=== PATIENT | female | born 1965 | race Caucasian/White ===

== ENCOUNTER 2016-11-03 20:21 | Emergency (ER) | payer MEDICAID ==
[2016-11-03 20:42] VITALS: BP 128/80
--- NOTE | 2016-11-03 20:58 | EDM.PDOC ---
[id number] [id number] KIDNEY INFECTION Time Seen by Provider: 11/03/16 20:45 Source: Reports: Patient History Limitations: Reports: No limitations - History of Present Illness INITIAL COMMENTS - FREE TEXT/NARRATIVE: 51-year-old female who recently had a right ureteral stent placed for recurring nephrolithiasis has been off an antibiotic for the past 5 days. She started developing urinary tract infection symptoms such as discomfort and dysuria the last 24 hours. She is afebrile but says she's been running low-grade fevers at home. Mild nausea but no vomiting. Quality: Reports: ache, burning Severity: moderate Worsens with: Reports: urinating Associated Symptoms: Reports: dysuria, urgency, fever/chills, other (Flank and back pain) - Related Data Allergies/ADRs: Allergies Allergy/AdvReac Type Severity Reaction Status Date / Time Penicillins Allergy Rash Verified 08/29/16 09:44 Sulfa (Sulfonamide Allergy Rash Verified 08/29/16 09:44 Antibiotics) Home Meds: Home Meds Albuterol Sulfate [Proair Hfa] 2 puff IH Q4HR PRN 01/18/15 [History] Amitriptyline [Elavil] 20 mg PO DAILY 01/18/15 [History] Aspirin [Halfprin] 81 mg PO DAILY 01/18/15 [History] Cholecalciferol (Vitamin D3) [Vitamin D] 1,200 mg PO DAILY 01/18/15 [History] Fluticasone Propionate [Flonase] 2 sprays NASBOTH DAILY 01/18/15 [History] Levothyroxine [Synthroid] 100 mcg PO DAILY 01/18/15 [History] Omeprazole [Prilosec] 20 mg PO DAILY 01/18/15 [History] Potassium Chloride [Klor-Con M20] 20 meq PO DAILY 01/18/15 [History] Triamterene/Hydrochlorothiazid [Triamterene-HCTZ 37.5-25 MG] 1 tab PO DAILY [History] Vitamin B Complex 2 tab PO DAILY 01/18/15 [History] Tamsulosin [Flomax] 0.4 mg PO DAILY 09/12/16 [History] Past Medical History Genitourinary History: Reports: Renal calculus Musculoskeletal History: Reports: Back pain, chronic - Past Surgical History Musculoskeletal Surgical History: Reports: Arthroscopic knee Social & Family History - Tobacco Use Smoking Status *Q: Never Smoker Years of Tobacco use: 15 Second Hand Smoke Exposure: No - Recreational Drug Use Recreational Drug Use: No ED ROS GENERAL - Review of Systems Review Of Systems: ROS reveals no pertinent complaints other than HPI. ED EXAM, RENAL/ - Physical Exam Exam: See Below Exam Limited By: No limitations General Appearance: alert, no apparent distress (The patient is not distressed but does appear uncomfortable) Respiratory/Chest: no respiratory distress Back Exam: CVA tenderness (R) (Does have some tenderness to palpation of the right CVA area) Neurological: alert, oriented Psychiatric: anxious Skin Exam: Warm, Dry Course - Vital Signs Last Recorded V/S: Last Vital Signs Temp 98.6 F 11/03/16 20:41 Pulse 113 H 11/03/16 20:41 Resp 14 11/03/16 20:41 BP 128/80 11/03/16 20:41 Pulse Ox 97 11/03/16 20:41 - Orders/Labs/Meds Orders: Active Orders 24 hr Category Date Time Status CULTURE URINE [RM] Stat Lab 11/03/16 20:56 Received Labs: Laboratory Tests 11/03/16 Range/Units 20:28 Urine Color Yellow Urine Appearance Clear Urine pH 6.0 (4.5-8.0) Ur Specific [place] 1.015 (1.008-1.030) Urine Protein Negative (NEGATIVE) mg/dL Urine Glucose (UA) Normal (NEGATIVE) mg/dL Urine Ketones Negative (NEGATIVE) mg/dL Urine Occult Blood Moderate (NEGATIVE) Urine Nitrite Negative (NEGATIVE) Urine Bilirubin Negative (NEGATIVE) Urine Urobilinogen Normal (NORMAL) mg/dL Ur Leukocyte Esterase Negative (NEGATIVE) Urine RBC Not seen (0-5) Urine WBC 5-10 H (0-5) Ur Epithelial Cells Few Amorphous Sediment Not seen Urine Bacteria Few Urine Mucus Not seen - Re-Assessments/Exams Free Text/Narrative Re-Assessment/Exam: 11/03/16 20:55 A UA was obtained and shows just a few bacteria and wbc's. A culture was initiated and the patient placed on 500 mg of Cipro once daily. She may just be having some ureteral colic from the stent. If worsening she can return, otherwise we will contact her with culture results in 2-3 days. She is scheduled to have the stent removed in 10 days and will have 10 days worth of antibiotic. She was also given 10 hydrocodone to take for extra pain control if needed. Departure - Departure Time of Disposition: 21:21 Disposition: Home, Self-Care 01 Condition: good Clinical Impression: Ureteral colic UTI (urinary tract infection) Qualifiers: Urinary tract infection type: site unspecified Hematuria presence: without hematuria Qualified Code(s): N39.0 - Urinary tract infection, site not specified Instructions: Kidney Stones, [id number] Referrals: Karol Winkler NP [Primary Care Provider] - Forms: ED Department Discharge Care Plan Goals: Take one dose of antibiotic daily, continue with diclofenac and add stronger pain medication if needed. Return if worsening such as high fever or vomiting. - My Orders Last 24 Hours: My Active Orders 11/03/16 20:56 CULTURE URINE [RM] Stat - Assessment/Plan Last 24 Hours: My Active Orders 11/03/16 20:56 CULTURE URINE [RM] Stat
== END 2016-11-03 21:22 | disposition home or self-care (01) ==
LOC: JP.ED 20:21
DX: N39.0 Urinary tract infection, site not specified (principal); N23 Unspecified renal colic; Z79.82 Long term (current) use of aspirin; Z79.899 Other long term (current) drug therapy; Z88.0 Allergy status to penicillin; Z88.2 Allergy status to sulfonamides; Z87.442 Personal history of urinary calculi; Z98.890 Other specified postprocedural states
CPT/HCPCS: 81001; 87086; 99284

== ENCOUNTER 2017-12-24 12:59 | Emergency (ER) | payer MEDICAID ==
[2017-12-24] MEDS ORDERED: Albuterol/Ipratropium 3.0-0.5 MG/3 ML Neb Soln NEB ONE (14:35)
--- NOTE | 2017-12-24 14:38 | EDM.PDOC ---
ED HPI GENERAL MEDICAL PROBLEM - General Chief Complaint: Respiratory Problem Stated Complaint: PNEUMONIA GETTING WORSE Time Seen by Provider: 12/24/17 14:29 Source of Information: Reports: Patient, RN Notes Reviewed History Limitations: Reports: No Limitations - History of Present Illness INITIAL COMMENTS - FREE TEXT/NARRATIVE: 52-year-old female presents to the emergency department with the complaint of shortness of breath. She was recently evaluated at an urgent care clinic diagnosed with sinusitis and pneumonia started on the antibiotic of azithromycin. She is completed 4 days of that medication has 1 dose remaining. She states she continues to have wheezing still feels short of breath feels most of her sinus congestion has improved no nausea vomiting no chest pain no fevers - Related Data Allergies Allergy/AdvReac Type Severity Reaction Status Date / Time latex Allergy Rash Verified 12/24/17 14:06 Penicillins Allergy Rash Verified 12/24/17 14:06 Sulfa (Sulfonamide Allergy Rash Verified 12/24/17 14:06 Antibiotics) Home Meds: Home Meds Albuterol Sulfate [Proair Hfa] 2 puff IH Q4HR PRN 01/18/15 [History] Amitriptyline [Elavil] 20 mg PO DAILY 01/18/15 [History] Aspirin [Halfprin] 81 mg PO DAILY 01/18/15 [History] Cholecalciferol (Vitamin D3) [Vitamin D] 1,200 mg PO DAILY 01/18/15 [History] Fluticasone Propionate [Flonase] 2 sprays NASBOTH DAILY 01/18/15 [History] Levothyroxine [Synthroid] 100 mcg PO DAILY 01/18/15 [History] Omeprazole [Prilosec] 20 mg PO DAILY 01/18/15 [History] Triamterene/Hydrochlorothiazid [Triamterene-HCTZ 37.5-25 MG] 1 tab PO DAILY [History] Vitamin B Complex 2 tab PO DAILY 01/18/15 [History] Albuterol [Proventil Neb Soln] 100 mg NEB Q4HRRT 12/24/17 [History] Azithromycin 500 mg PO DAILY 12/24/17 [History] Benzonatate 100 mg PO ASDIRECTED 12/24/17 [History] Cefdinir [Omnicef] 300 mg PO BID #20 cap 12/24/17 [Rx] predniSONE [Prednisone] 30 mg PO DAILY 12/24/17 [History] Past Medical History Cardiovascular History: Reports: Hypertension Genitourinary History: Reports: Renal Calculus Musculoskeletal History: Reports: Back Pain, Chronic - Past Surgical History Neurological Surgical History: Reports: Discectomy Musculoskeletal Surgical History: Reports: Arthroscopic Knee Social & Family History - Tobacco Use Smoking Status *Q: Former Smoker Used Tobacco, but Quit: Yes Month/Year Tobacco Last Used: 30 years ago - Caffeine Use Caffeine Use: Reports: Coffee, Soda - Recreational Drug Use Recreational Drug Use: No ED ROS GENERAL - Review of Systems Review Of Systems: See Below Constitutional: Denies: Fever, Chills HEENT: Reports: No Symptoms Respiratory: Reports: Shortness of Breath, Wheezing, Cough, Sputum Cardiovascular: Reports: Dyspnea on Exertion GI/Abdominal: Reports: No Symptoms : Reports: No Symptoms Musculoskeletal: Reports: No Symptoms Skin: Reports: No Symptoms Neurological: Reports: No Symptoms Psychiatric: Reports: No Symptoms ED EXAM, GENERAL - Physical Exam Exam: See Below Free Text/Narrative:: General: Female, not in any distress, alert and oriented x3 HEENT: head is atraumatic normocephalic, eyes pupils equal round reactive to light, sclera clear no conjunctivitis appreciated. Ears blocked by cerumen bilaterally. Nose no septal deviation, nares are clear, no blood present. Mouth mucosa is moist and pink no erythema or exudate noted in soft palate, tongue is midline uvula is midline, dentition is intact. Neck: Supple no thyromegaly no tracheal deviation. Nodes: Cervical nodes subclavicular nodes nontender no palpable lymphadenopathy noted. Lungs: Breath sounds are decreased with rhonchi in the bases and asked to a wheeze mid to lower lung romero bilaterally CV: Regular rate and rhythm S1 and S2 appreciated no murmurs rubs or gallops noted. Abdomen: Soft, nontender, no palpable masses or organomegaly appreciated, no distention no guarding bowel sounds are present, Course - Vital Signs Last Recorded V/S: Last Vital Signs Temp 97.9 F 12/24/17 14:02 Pulse 88 12/24/17 15:08 Resp 16 12/24/17 15:08 BP 153/70 H 12/24/17 15:08 Pulse Ox 93 L 12/24/17 15:08 - Orders/Labs/Meds Orders: Active Orders 24 hr Category Date Time Status RT Aerosol Therapy [RC] ASDIRECTED Care 12/24/17 14:35 Active UA W/MICROSCOPIC [URIN] Urgent Lab 12/24/17 14:49 Ordered Labs: Laboratory Tests 12/24/17 12/24/17 12/24/17 Range/Units 14:37 14:48 14:48 WBC 14.7 H (4.5-11.0) K/uL RBC 5.21 (3.30-5.50) M/uL Hgb 16.8 H (12.0-15.0) g/dL Hct 48.5 H (36.0-48.0) % MCV 93 (80-98) fL MCH 32 H (27-31) pg MCHC 35 (32-36) % Plt Count 285 (150-400) K/uL Neut % (Auto) 70 H (36-66) % Lymph % (Auto) 21 L (24-44) % [place] % (Auto) 9 H (2-6) % Eos % (Auto) 0 L (2-4) % Baso % (Auto) 0 (0-1) % Sodium 139 L (140-148) mmol/L Potassium 3.2 L (3.6-5.2) mmol/L Chloride 101 (100-108) mmol/L Carbon Dioxide 30 (21-32) mmol/L Anion Gap 11.2 (5.0-14.0) mmol/L BUN 17 (7-18) mg/dL Creatinine 0.8 (0.6-1.0) mg/dL Est Cr Clr Drug Dosing 78.76 mL/min Estimated GFR (MDRD) > 60 (>60) Glucose 99 (74-106) mg/dL Lactic Acid (0.4-2.0) mmol/L Calcium 8.7 (8.5-10.1) mg/dL Troponin I < 0.017 (0.000-0.056) ng/mL Urine Color Urine Appearance Urine pH (4.5-8.0) Ur Specific [place] (1.008-1.030) Urine Protein (NEGATIVE) mg/dL Urine Glucose (UA) (NEGATIVE) mg/dL Urine Ketones (NEGATIVE) mg/dL Urine Occult Blood (NEGATIVE) Urine Nitrite (NEGATIVE) Urine Bilirubin (NEGATIVE) Urine Urobilinogen (NORMAL) mg/dL Ur Leukocyte Esterase (NEGATIVE) Urine RBC (0-5) Urine WBC (0-5) Ur Epithelial Cells Amorphous Sediment Urine Bacteria Urine Mucus 12/24/17 12/24/17 Range/Units 14:48 14:49 WBC (4.5-11.0) K/uL RBC (3.30-5.50) M/uL Hgb (12.0-15.0) g/dL Hct (36.0-48.0) % MCV (80-98) fL MCH (27-31) pg MCHC (32-36) % Plt Count (150-400) K/uL Neut % (Auto) (36-66) % Lymph % (Auto) (24-44) % [place] % (Auto) (2-6) % Eos % (Auto) (2-4) % Baso % (Auto) (0-1) % Sodium (140-148) mmol/L Potassium (3.6-5.2) mmol/L Chloride (100-108) mmol/L Carbon Dioxide (21-32) mmol/L Anion Gap (5.0-14.0) mmol/L BUN (7-18) mg/dL Creatinine (0.6-1.0) mg/dL Est Cr Clr Drug Dosing mL/min Estimated GFR (MDRD) (>60) Glucose (74-106) mg/dL Lactic Acid 1.3 (0.4-2.0) mmol/L Calcium (8.5-10.1) mg/dL Troponin I (0.000-0.056) ng/mL Urine Color Yellow Urine Appearance Clear Urine pH 6.0 (4.5-8.0) Ur Specific [place] 1.015 (1.008-1.030) Urine Protein Negative (NEGATIVE) mg/dL Urine Glucose (UA) Normal (NEGATIVE) mg/dL Urine Ketones Negative (NEGATIVE) mg/dL Urine Occult Blood Moderate (NEGATIVE) Urine Nitrite Negative (NEGATIVE) Urine Bilirubin Small (NEGATIVE) Urine Urobilinogen 1 (NORMAL) mg/dL Ur Leukocyte Esterase Negative (NEGATIVE) Urine RBC 5-10 H (0-5) Urine WBC 0-5 (0-5) Ur Epithelial Cells Few Amorphous Sediment Not seen Urine Bacteria Rare Urine Mucus Not seen Meds: Medications Discontinued Medications Generic Name Dose Route Start Last Admin Trade Name Freq PRN Reason Stop Dose Admin Albuterol/Ipratropium 3 ml 06/05/18 14:35 12/24/17 14:49 Duoneb 3.0-0.5 Mg/3 Ml NEB 12/24/17 14:36 3 ml ONETIME ONE Administration Departure - Departure Time of Disposition: 15:39 Disposition: Home, Self-Care 01 Condition: Good Clinical Impression: Exacerbation of asthma Qualifiers: Asthma severity: mild Asthma persistence: intermittent Qualified Code(s): J45.21 - Mild intermittent asthma with (acute) exacerbation Sinusitis Qualifiers: Sinusitis location: frontal Chronicity: acute Recurrence: non-recurrent Qualified Code(s): J01.10 - Acute frontal sinusitis, unspecified - Discharge Information Prescriptions: Cefdinir [Omnicef] 300 mg PO BID #20 cap Referrals: Giovany Sanchez MD [Primary Care Provider] - Forms: ED Department Discharge Additional Instructions: Take full course of antibiotics, continue to use your albuterol inhaler as needed for shortness of breath symptoms, please follow-up with primary care in the next 3-5 days for reevaluation, call or return to the emergency department worsening of symptoms - My Orders Last 24 Hours: My Active Orders 12/24/17 14:35 RT Aerosol Therapy [RC] ASDIRECTED 12/24/17 14:49 UA W/MICROSCOPIC [URIN] Urgent - Assessment/Plan Last 24 Hours: My Active Orders 12/24/17 14:35 RT Aerosol Therapy [RC] ASDIRECTED 12/24/17 14:49 UA W/MICROSCOPIC [URIN] Urgent Plan: Assessment Acuity = acute Site and laterality = sinusitis complicated with asthma exacerbation Etiology = probable bacterial cause Manifestations = dyspnea Location of injury = Home Lab values = WBC elevated at 14.7 consistent leukocytosis, potassium low at 3.2 consistent with hypokalemia, troponin was negative, lactic acid normal 1.3 urinalysis reveals 5-10 rbc's consistent hematuria, chest x-ray shows no acute process Plan I did review lab work and chest x-ray results with her she had good improvement in her respiration with the DuoNeb treatment. One of her concerns is that the azithromycin is not helping her sinusitis would like to change in antibiotic therefore prescription written for Ceftin are 300 mg by mouth twice a day 10 days, she does have an albuterol inhaler at home which she is not been using she will start using that as needed for wheezing symptoms cough and shortness of breath, she will follow-up with her primary care provider in the next 3-5 days for reevaluation This note was dictated using [employer] voice recognition software please call with any questions on syntax or grammar.
--- NOTE | 2017-12-24 14:58 | CR ---
CHEST: 2 view CLINICAL HISTORY: Shortness of breath COMPARISON:2013 FINDINGS: Heart size, pulmonary vascularity and hilar structures are normal. No infiltrate effusion or pneumothorax is seen.. IMPRESSION: No acute cardiothoracic process or significant change from prior study
[2017-12-24 15:09] VITALS: BP 153/70
== END 2017-12-24 16:06 | disposition home or self-care (01) ==
LOC: JP.ED 12:59
DX: J45.21 Mild intermittent asthma with (acute) exacerbation (principal); J01.10 Acute frontal sinusitis, unspecified; I10 Essential (primary) hypertension; Z91.040 Latex allergy status; Z88.0 Allergy status to penicillin; Z88.2 Allergy status to sulfonamides; Z79.899 Other long term (current) drug therapy; Z79.82 Long term (current) use of aspirin; Z87.891 Personal history of nicotine dependence
CPT/HCPCS: 36415; 71046; 71046-26; 80048; 81001; 83605; 84484; 85025; 94640; 99285-25; J7620

== ENCOUNTER 2018-09-24 10:19 | Emergency (ER) | payer MEDICAID ==
[2018-09-24 10:35] VITALS: BP 152/86
[2018-09-24] MEDS ORDERED: Ondansetron 4 MG Tab.DIS PO ONE (11:00)
[2018-09-24] MEDS ORDERED: Alum Hydrox/Mag Hydrox/Simeth 15 ML, Lidocaine 2% 15 ML PO ONE ×2 (11:00)
--- NOTE | 2018-09-24 11:03 | EDM.PDOC ---
ED HPI GENERAL MEDICAL PROBLEM - General Chief Complaint: Abdominal Pain Stated Complaint: ABD PAIN Time Seen by Provider: 09/24/18 10:55 Source of Information: Reports: Patient, RN Notes Reviewed History Limitations: Reports: No Limitations - History of Present Illness INITIAL COMMENTS - FREE TEXT/NARRATIVE: 53-year-old female presents emergency department day complaint of epigastric pain, she states it started around midnight worse when she lays down and worse when she stands straight up she gets some relief when she sits at about a 45 angle. Does have severe nausea and vomiting with this no shortness of breath no chest pain does of a history of reflux feels very similar does take a medication only intermittently Upper Abdominal Pain Score (Numeric/FACES): 8 - Related Data Allergies Allergy/AdvReac Type Severity Reaction Status Date / Time latex Allergy Rash Verified 09/24/18 10:31 Penicillins Allergy Rash Verified 09/24/18 10:31 Sulfa (Sulfonamide Allergy Rash Verified 09/24/18 10:31 Antibiotics) Home Meds: Home Meds Albuterol Sulfate [Proair Hfa] 2 puff IH Q4HR PRN 01/18/15 [History] Amitriptyline [Elavil] 20 mg PO DAILY 01/18/15 [History] Aspirin [Halfprin] 81 mg PO DAILY 01/18/15 [History] Cholecalciferol (Vitamin D3) [Vitamin D] 1,200 mg PO DAILY 01/18/15 [History] Fluticasone Propionate [Flonase] 2 sprays NASBOTH DAILY 01/18/15 [History] Levothyroxine [Synthroid] 100 mcg PO DAILY 01/18/15 [History] Omeprazole [Prilosec] 20 mg PO DAILY 01/18/15 [History] Triamterene/Hydrochlorothiazid [Triamterene-HCTZ 37.5-25 MG] 1 tab PO DAILY [History] Vitamin B Complex 2 tab PO DAILY 01/18/15 [History] Albuterol [Proventil Neb Soln] 100 mg NEB Q4HRRT 12/24/17 [History] Benzonatate 100 mg PO ASDIRECTED 12/24/17 [History] rOPINIRole [Requip] 0.25 mg PO BEDTIME 07/30/18 [History] Amoxicillin 875 mg PO BID 09/24/18 [History] Past Medical History Cardiovascular History: Reports: Hypertension Respiratory History: Reports: Asthma Gastrointestinal History: Reports: GERD Genitourinary History: Reports: Renal Calculus [employer]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: Musculoskeletal History: Reports: Back Pain, Chronic, Fibromyalgia Endocrine/Metabolic History: Reports: Hypothyroidism, Obesity/BMI 30+ Hematologic History: Reports: Iron Deficiency - Infectious Disease History Infectious Disease History: Reports: Chicken Pox, Measles - Past Surgical History Head Surgeries/Procedures: Reports: None Cardiovascular Surgical History: Reports: None Respiratory Surgical History: Reports: None GI Surgical History: Reports: None Female Surgical History: Reports: None Endocrine Surgical History: Reports: None Neurological Surgical History: Reports: Discectomy Musculoskeletal Surgical History: Reports: Arthroscopic Knee, Other (See Below) Other Musculoskeletal Surgeries/Procedures:: bilat knee surgery Dermatological Surgical History: Reports: None Social & Family History - Tobacco Use Smoking Status *Q: Former Smoker Used Tobacco, but Quit: Yes Month/Year Tobacco Last Used: 1983 Second Hand Smoke Exposure: No - Caffeine Use Caffeine Use: Reports: Soda - Recreational Drug Use Recreational Drug Use: No ED ROS GENERAL - Review of Systems Review Of Systems: See Below Constitutional: Reports: No Symptoms HEENT: Reports: No Symptoms Respiratory: Reports: No Symptoms Cardiovascular: Reports: No Symptoms GI/Abdominal: Reports: Abdominal Pain (Epigastric area), Nausea, Vomiting : Reports: No Symptoms Musculoskeletal: Reports: No Symptoms Skin: Reports: No Symptoms Neurological: Reports: No Symptoms ED EXAM, GI/ABD - Physical Exam Exam: See Below Exam Limited By: No Limitations General Appearance: Alert, WD/WN, No Apparent Distress Respiratory/Chest: No Respiratory Distress, Lungs Clear, Normal Breath Sounds, No Accessory Muscle Use, Chest Non-Tender Cardiovascular: Regular Rate, Rhythm, No Murmur GI/Abdominal Exam: Normal Bowel Sounds, Soft, No Organomegaly, No Distention, Tender (Epigastric region) Back Exam: No: CVA Tenderness (R), CVA Tenderness (L) Course - Vital Signs Last Recorded V/S: Last Vital Signs Temp 97.8 F 09/24/18 10:36 Pulse 91 09/24/18 10:36 Resp 16 09/24/18 10:36 BP 152/86 H 09/24/18 10:36 Pulse Ox 93 L 09/24/18 10:36 - Orders/Labs/Meds Orders: Active Orders 24 hr Category Date Time Status Cardiac Monitoring [RC] .As Directed Care 09/24/18 10:59 Active EKG Documentation Completion [RC] ASDIRECTED Care 09/24/18 11:00 Active EKG 12 Lead [EK] Stat Ther 09/24/18 11:00 Ordered Labs: Laboratory Tests 09/24/18 09/24/18 Range/Units 11:18 11:18 WBC 9.3 (4.5-11.0) K/uL RBC 5.25 (3.30-5.50) M/uL Hgb 16.8 H (12.0-15.0) g/dL Hct 49.0 H (36.0-48.0) % MCV 93 (80-98) fL MCH 32 H (27-31) pg MCHC 34 (32-36) % Plt Count 283 (150-400) K/uL Neut % (Auto) 66 (36-66) % Lymph % (Auto) 20 L (24-44) % [place] % (Auto) 7 H (2-6) % Eos % (Auto) 5 H (2-4) % Baso % (Auto) 1 (0-1) % Sodium 142 (140-148) mmol/L Potassium 3.6 (3.6-5.2) mmol/L Chloride 104 (100-108) mmol/L Carbon Dioxide 31 (21-32) mmol/L Anion Gap 6.9 (5.0-14.0) mmol/L BUN 21 H (7-18) mg/dL Creatinine 0.8 (0.6-1.0) mg/dL Est Cr Clr Drug Dosing 77.88 mL/min Estimated GFR (MDRD) > 60 (>60) Glucose 97 (74-106) mg/dL Calcium 9.5 (8.5-10.1) mg/dL Total Bilirubin 0.3 (0.2-1.0) mg/dL AST 14 L (15-37) U/L ALT 30 (12-78) U/L Alkaline Phosphatase 88 (46-116) U/L Troponin I < 0.017 (0.000-0.056) ng/mL Total Protein 6.9 (6.4-8.2) g/dL Albumin 3.4 (3.4-5.0) g/dL Globulin 3.5 (2.3-3.5) g/dL Albumin/Globulin Ratio 1.0 L (1.2-2.2) Meds: Medications Discontinued Medications Generic Name Dose Route Start Last Admin Trade Name Peter PRN Reason Stop Dose Admin Al Hydroxide/Mg Hydroxide 15 0 ml 09/24/18 11:00 09/24/18 11:11 ml/ Lidocaine HCl 15 ml PO 09/24/18 11:01 15 ml ONETIME ONE Administration Ondansetron HCl 4 mg 09/24/18 11:00 09/24/18 11:10 Zofran Odt PO 09/24/18 11:01 4 mg ONETIME ONE Administration Ranitidine HCl 150 mg 09/24/18 11:49 09/24/18 12:08 Zantac PO 09/24/18 11:50 150 mg NOW STA Administration Departure - Departure Time of Disposition: 12:51 Disposition: Home, Self-Care 01 Condition: Fair Clinical Impression: GERD (gastroesophageal reflux disease) Qualifiers: Esophagitis presence: esophagitis presence not specified Qualified Code(s): K21.9 - Gastro-esophageal reflux disease without esophagitis - Discharge Information Referrals: Alison Church PA-C [Primary Care Provider] - Forms: ED Department Discharge Additional Instructions: Increase your omeprazole to twice a day dosing, recommend the next 6-8 weeks, please follow-up with your primary care in the next 3-5 days for reevaluation, call return to the emergency department worsening of symptoms - My Orders Last 24 Hours: My Active Orders 09/24/18 10:59 Cardiac Monitoring [RC] .As Directed 09/24/18 11:00 EKG Documentation Completion [RC] ASDIRECTED EKG 12 Lead [EK] Stat - Assessment/Plan Last 24 Hours: My Active Orders 09/24/18 10:59 Cardiac Monitoring [RC] .As Directed 09/24/18 11:00 EKG Documentation Completion [RC] ASDIRECTED EKG 12 Lead [EK] Stat Plan: Assessment Acuity = acute Site and laterality = gastroesophageal reflux disease Etiology = unknown etiology Manifestations = epigastric pain Location of injury = Home Lab values = CBC, CMP, troponin unremarkable EKG demonstrates sinus sinus rhythm on appreciate any ST elevations or depressions Plan [She had good improvement combination GI cocktail and Zantac she was currently using her omeprazole on a when necessary basis recommended twice a day dosing for the next 6-8 weeks and then reduction of the medication, recommend follow- up with primary care in the next 3-5 days for reevaluation This note was dictated using [employer] voice recognition software please call with any questions on syntax or grammar.
== END 2018-09-24 13:03 | disposition home or self-care (01) ==
LOC: JP.ED 10:19
DX: K21.9 Gastro-esophageal reflux disease without esophagitis (principal); E03.9 Hypothyroidism, unspecified; Z87.891 Personal history of nicotine dependence; Z79.899 Other long term (current) drug therapy; Z79.82 Long term (current) use of aspirin; Z91.040 Latex allergy status; Z88.0 Allergy status to penicillin; Z88.2 Allergy status to sulfonamides
CPT/HCPCS: 36415; 80053; 84484; 85025; 93005; 99284; A9270

== ENCOUNTER 2018-10-09 05:58 | Day surgery (SDC) | payer MEDICAID ==
[~2018-10-09 05:58] MED LIST: Dextrose 5%-Lactated Ringers 1,000 ML IV SCH; Glycopyrrolate 0.2 MG/ML 2 ML SDV IVPUSH ONE
[2018-10-09] MEDS ORDERED: Dextrose 5%-Lactated Ringers 1,000 ML IV SCH (06:30)
[2018-10-09] MEDS ORDERED: Propofol 200 MG/20 ML SDV ONE ×2 (06:58→07:33)
[2018-10-09] MEDS ORDERED: fentaNYL 100 MCG/2 ML SDV ONE (06:58)
[2018-10-09] MEDS ORDERED: Midazolam 1 MG/ML 2 ML SDV ONE (06:58)
[2018-10-09] MEDS ORDERED: Glycopyrrolate 0.2 MG/ML 2 ML SDV IVPUSH ONE (07:15)
[2018-10-09 08:58] VITALS: BP 123/82
--- NOTE | 2018-10-16 08:30 | OR ---
DATE OF PROCEDURE: 10/09/2018 PREOPERATIVE DIAGNOSES: 1. History of nausea, abdominal pain, and emesis. 2. Indication for screening colonoscopy. POSTOPERATIVE DIAGNOSES: 1. Healing erosions in pre-pyloric stomach. 2. Normal screening colonoscopy. OPERATIVE PROCEDURES: 1. Esophagogastroduodenoscopy with biopsies of antrum for CLOtest. 2. Flexible colonoscopy. ANESTHESIA: IV sedation. INDICATION FOR PROCEDURE: A 53-year-old female presenting with some nausea, upper abdominal discomfort, and intermittent vomiting. She had been started on omeprazole and Carafate recently and thinks that things may be improving somewhat in terms of her upper GI symptoms. She is also being treated for screening colonoscopy and will undergo that, along with polypectomy and/or biopsies as indicated. Potential risks of the procedures including bleeding and perforation were discussed, and the patient wishes to proceed. DETAILS OF PROCEDURE: The patient was taken to the operating room and placed in a left lateral decubitus position. IV sedation was administered, after which the upper GI endoscope was passed orally through the length of the esophagus through the stomach, with retroflexion view of the fundus, and thereafter through the pyloric channel to the junction of the third and fourth portions of the duodenum. Findings included normal hypopharynx, larynx, upper esophageal sphincter, and esophageal body. EG junction showed no significant hiatal hernia or inflammation. Within the stomach, small amount of retained bile was present. There were some healing erosions in the prepyloric area, and these were covered with fibrinous-type exudate. No blood or bleeding was seen. The prepyloric channel and visualized portions of the duodenum were unremarkable. At this point, biopsies were obtained from the antrum and sent for CLOtest for H. pylori. Minimal bleeding from the biopsy sites was seen, and the gastroscope then withdrawn. The initial digital rectal exam was then performed and colonoscope inserted with retroflexion revealing uncomplicated hemorrhoidal columns. The scope was eventually passed to the cecum. The prep was fairly good with there only being a small amount of solid and liquid stool present, but the vast majority of the mucosal surfaces were well seen. To the level of the cecum, no abnormalities were noted, specifically no areas of diverticular disease, no polyps or other signs of neoplasia, and no areas of colitis. The scope was then withdrawn, the above findings were reconfirmed, and the procedure then concluded. The plan will be to have the patient follow up with her provider, Alison Church PA-C, in [facility] in 1 to 2 weeks. She will be instructed to continue the omeprazole and Carafate. Otherwise, from a colonoscopy standpoint, she has no personal or family history of colonic neoplasia, so the next colonoscopy should likely be scheduled around 10 years. Pawel Ortiz MD /[id number]
== END 2018-10-09 09:20 | disposition home or self-care (01) ==
LOC: JP.SDS 05:58
PROVIDERS: ATTEND Surgery
DX: K25.9 Gastric ulcer, unspecified as acute or chronic, without hemorrhage or perforation (principal); K21.9 Gastro-esophageal reflux disease without esophagitis
CPT/HCPCS: 43239; 45378; 87081; J2250; J2704; J3010; J3490; J7042

== ENCOUNTER → 2018-10-29 | Outpatient (CLI) | payer MEDICAID ==
--- NOTE | 2018-10-29 13:50 | NM ---
HEPATOBILIARY SCAN WITH EJECTION FRACTION: Clinical History: Epigastric pain Multiple images of the hepatobiliary system were obtained following the IV injection of 4.95 mCi of technetium 99m Choletec. 60 minutes into the study the patient was given1.59 mcg of CCK by slow IV push. The patient experienced right upper quadrant pain and nausea upon injection]Quantitative analysis of the gallbladder was performed. Findings: There is a normal pattern of hepatic uptake. Biliary activity is seen at 5minutes. Gallbladder activity is seen at 60minutes. Intestinal activity is seen at 10minutes. Following the Kinevac infusion the gallbladder ejection fraction was calculated at 92%. Impression:Normal hepatobiliary scan The gallbladder ejection fraction wasnormal at 92%
== END ==
LOC: JP.NM 09:13
PROVIDERS: ATTEND Physician Assistant
DX: R10.13 Epigastric pain (principal)
CPT/HCPCS: 78227; 78227-26

== ENCOUNTER 2019-01-07 11:08 | Outpatient (CLI) | payer MEDICAID ==
[~2019-01-07 11:08] MED LIST changes: +Bupivacaine 0.25% 10 ML SDV ONE; +Bupivacaine 0.5% 30 ML SDV ONE; -Dextrose 5%-Lactated Ringers 1,000 ML IV SCH; -Glycopyrrolate 0.2 MG/ML 2 ML SDV IVPUSH ONE; +methylPREDNISolone Acetate 80 MG/ML SDV ONE
[2019-01-07 11:40] VITALS: BP 115/82; PULSE 71
--- NOTE | 2019-01-07 18:07 | ANES ---
DATE OF SERVICE: 01/07/2019 INDICATION: Sylvie is a 53-year-old female patient referred to us by Dr. Baldwin for epidural steroid injection and trigger point injections today. She has had both of the procedures in the past, is well aware of the risks and benefits related to both procedures, and wishes to proceed with both the trigger point injection and epidural steroid injection today. Please refer to the doctor's notes for ICD-10 code and diagnosis. TECHNIQUE: The patient was then sat at the edge of bed. Betadine prep x3 to the lumbar region was done. Sterile drape was placed. 1% lidocaine skin wheal and deep was done. A 17-gauge Tuohy needle was inserted at approximately the L4-5 position just above her back scar. Loss of resistance was achieved. Negative paresthesia, negative heme, and negative CSF were noted. I then proceeded to give 7 mL of sterile normal saline with 2 mL of 0.25% Sensorcaine and 1 mL of 80 mg Depo-Medrol. Tuohy needle was then flushed and withdrawn. Sterile drape was taken down. Betadine was cleaned off her back and a Band-Aid was applied to the puncture site for hemostasis. I then turned my attention to the trigger points. The patient was wanting me to focus on her upper back, bilateral trapezius muscles, and then the upper part of her back between her scapula. I was able to easily identify approximately 14 to 15 trigger points in that area. Alcohol was used to clean the skin prior to the injections. 1 to 2 mL of 0.5% Sensorcaine was injected into those areas. More than 3 muscle groups were injected today. The patient tolerated both procedures without difficulty. Please refer to the nurse's notes for vital signs. After the appropriate amount of time, the patient will be discharged per [facility] protocol. Kirby Knpap CRNA /[id number]
== END 2019-01-07 11:41 | disposition home or self-care (01) ==
LOC: JP.PAIN 11:08
PROVIDERS: ATTEND Physical Medicine & Rehabilitation
DX: M79.18 Myalgia, other site (principal); M54.16 Radiculopathy, lumbar region; M54.2 Cervicalgia; M54.9 Dorsalgia, unspecified
CPT/HCPCS: 20553; 62322; J1040; J3490